=== PATIENT | male | born 1975 | race Caucasian/White ===

== ENCOUNTER 2019-06-06 08:14 | Outpatient (CLI) | payer MEDICAID ==
[2019-06-06 11:08] LABS: ALBUMIN 4.2 g/dL (3.2-5.5); ALBUMIN/GLOBULIN RATIO 1.5 (1.0-2.2); ALKALINE PHOSPHATASE 51 IU/L (42-121); ALT ALANINE AMINOTRANSFERASE 18 IU/L (10-60); AST ASPARTATE AMINOTRANSFERASE 18 IU/L (10-42); BILIRUBIN,TOTAL 0.6 mg/dL (0.2-1.0); BUN - BLOOD UREA NITROGEN 15 mg/dL (6-20); CALCIUM 8.8 mg/dL (8.5-10.3); CARBON DIOXIDE - CO2 30 mmol/L (21-32); CHLORIDE 104 mmol/L (101-111); CHOL/HDL RATIO 3.5 (<5.0); CHOLESTEROL 185 mg/dL; CREATININE 0.7 mg/dL (0.6-1.2); GFR - MDRD 124 (>89); GLUCOSE 97 mg/dL (70-100); HDL CHOLESTEROL 53 mg/dL; LDL CHOLESTEROL,CALCULATED 114 mg/dL; LDL/HDL RATIO 2.2 (<3.6); SODIUM 139 mmol/L (135-145); VLDL CHOLESTEROL 18 mg/dL
== END 2019-06-06 08:15 | disposition home or self-care (01) ==
LOC: LAB.S 08:14
PROVIDERS: ATTEND Internal Medicine
DX: Z00.00 Encounter for general adult medical examination without abnormal findings (principal)
CPT/HCPCS: 36415; 80053; 80061; 83721

== ENCOUNTER 2023-05-30 16:14 | Emergency (ER) | payer MEDICAID ==
[2023-05-30 16:23] VITALS: BP 127/63; O2SAT 100
--- NOTE | 2023-05-30 16:37 | ED Physician Documentation ---
History of Present Illness - Stated complaint Stated Complaint: R FOOT PX - Chief complaint Chief Complaint: Trauma Ext - History obtained from History obtained from: Patient - History of Present Illness Timing: Today Pain level max: 5 Pain level now: 5 - Additonal information Additional information: Patient is a 47-year-old male who complains of toe pain. He states that he kicked a soccer ball on April 03 and injured the toe. He states he kicked a soccer ball again yesterday and reinjured the toe. Worse with movement, better with rest. Review of Systems Constitutional: denies: Fever, Chills Skin: denies: Rash Musculoskeletal: denies: Neck pain, Back pain PD PAST MEDICAL HISTORY - Past Medical History Past Medical History: Yes Neuro: Headaches - Past Surgical History Past Surgical History: Yes HEENT: Tonsil/Adenoidectomy - Allergies Allergies/Adverse Reactions: Allergies Allergy/AdvReac Type Severity Reaction Status Date / Time No Known Drug Allergies Allergy Verified 05/30/23 16:22 - Social History Does the pt smoke?: No Smoking Status: Never smoker Does the pt drink ETOH?: No Does the pt have substance abuse?: Yes Substance Use and Type: Marijuana - Immunizations Immunizations are current?: Yes - POLST Patient has POLST: No PD ED PE NORMAL - Vitals Vital signs reviewed: Yes - General General: Alert and oriented X 3, No acute distress - HEENT HEENT: Moist mucous membranes - Derm Derm: Warm and dry - Extremities Extremities: Other (Normal examination of the right foot. No swelling. No ecchymosis. Neurovascular intact. No bony tenderness. Full range of motion of all toes and joints without pain.) - Neuro Neuro: Alert and oriented X 3 Results - Vitals Vitals: Vital Signs - 24 hr 05/30/23 16:18 Temperature 36.3 C L Heart Rate 99 Respiratory 16 Rate Blood Pressure 127/63 O2 Saturation 100 Oxygen O2 Source Room air - Rads (name of study) Right foot x-ray Relevant Findings:: Final report received, See rad report PD Medical Decision Making - ED course Complexity details: reviewed results, re-evaluated patient, considered differential, d/w patient ED course: 47-year-old male with a right great toe injury, possible sprain versus contusion. No bony tenderness on evaluation. No swelling. Neurovascular intact. No skin changes. No subungual hematoma. Placed in a postoperative shoe for comfort. Can utilize Motrin Tylenol for pain at home. Patient counseled regarding signs and symptoms for which I believe and urgent re- evaluation would be necessary. Patient with good understanding of and agreement to plan and is comfortable going home at this time This document was made in part using voice recognition software. While efforts are made to proofread this document, sound alike and grammatical errors may occur. Departure - Departure Disposition: Home, Self Care Clinical Impression: Toe sprain Qualifiers: Encounter type: initial encounter Qualified Code(s): S93.509A - Unspecified sprain of unspecified toe(s), initial encounter Condition: Good Instructions: ED Sprain Toe Follow-Up: your,doctor in 1 week [Other] Comments: Your x-ray does not show any acute abnormalities today. It appears that you solares ve a toe sprain. You can use the postoperative shoe for comfort. Please follow-up with your doctor for further care. You can use Motrin or Tylenol as needed for pain. Forms: PCP List Discharge Date/Time: 05/30/23 17:22
--- NOTE | 2023-05-30 16:55 | XRAY Report ---
PROCEDURE: Foot 3 View RT INDICATIONS: foot pain TECHNIQUE: 3 views of the foot were acquired. COMPARISON: None. FINDINGS: Bones: No fractures or dislocations. Mild first MTP joint osteoarthritic changes are noted with paul nt space narrowing and subchondral sclerosis. No definite bony erosion is seen. No suspicious bony le sions. Soft tissues: Mild soft tissue swelling over medial aspect of first MTP joint. No suspicious soft ti ssue calcifications or masses. IMPRESSION: Finding may represent soft tissue bunion over medial aspect of first MTP joint. No fractu re or dislocation. No definite bony erosion. Very mild first MTP joint osteoarthritis. Reviewed by: Jorje Orellana MD on 05/30/2023 4:54 PM PST Approved by: Jorje Orellana MD on 05/30/2023 4:54 PM PST Station ID: [id number]
== END 2023-05-30 17:22 | disposition home or self-care (01) ==
LOC: ED 16:14
DX: S93.509A Unspecified sprain of unspecified toe(s), initial encounter (principal); W21.02XA Struck by soccer ball, initial encounter
CPT/HCPCS: 99283